=== PATIENT | female | born 2000 | race Caucasian/White ===

== ENCOUNTER 2019-06-28 15:54 | Emergency (ER) | payer MEDICAID ==
[~2019-06-28] VITALS: Ht 162.6 cm; Wt 73.9 kg
[2019-06-28 16:07] VITALS: BP 110/65; Ht 162.6 cm; Wt 73.9 kg
== END 2019-06-28 18:20 | disposition home or self-care (01) ==
LOC: ED 15:54
DX: S51.012A Laceration without foreign body of left elbow, initial encounter (principal); V49.9XXA Car occupant (driver) (passenger) injured in unspecified traffic accident, initial encounter; Y93.I9 Activity, other involving external motion; Y92.413 State road as the place of occurrence of the external cause; Y99.8 Other external cause status
CPT/HCPCS: J2001